=== PATIENT | female | born 1975 | race Caucasian/White ===

== ENCOUNTER 2017-11-27 08:15 | Day surgery (SDC) | payer BC ==
[~2017-11-27 08:15] MED LIST: CEFAZOLIN 2 GM/50 ML (PMX) 50 ML IVPB; DEXTROSE 5%-LR 1,000 ML IV; LACTATED RINGER'S 1,000 ML IV
[2017-11-27] MEDS: HEPARIN 5,000 UNIT/0.5 ML VIAL SC (09:14)
[2017-11-27] MEDS ORDERED: FENTAnyl 50 MCG/ML VIAL (09:45)
[2017-11-27] MEDS ORDERED: PROPOFOL 20 ML (10:14)
[2017-11-27] MEDS ORDERED: SUGAMMADEX SODIUM 200 MG/2 ML VIAL IV (10:14)
[2017-11-27] MEDS ORDERED: ROCURONIUM 50 MG INJ (10:14)
[2017-11-27] MEDS ORDERED: LIDOCAINE 100 MG SYRINGE (10:14)
[2017-11-27] MEDS ORDERED: SUCCINYLCHOLINE CHLORIDE 100 MG/5 ML SYG IV (10:14)
[2017-11-27] MEDS ORDERED: CEFAZOLIN 1 GM INJ (10:14)
[2017-11-27] MEDS: BUPIVACAINE 0.5%/EPI (SDV) 30 ML INJ (10:17)
[2017-11-27] MEDS ORDERED: ROPIVACAINE 0.5 % 30 ML VIAL (11:01)
[2017-11-27] MEDS ORDERED: MEPERIDINE 25 MG INJ (11:49)
[2017-11-27] MEDS ORDERED: HYDROmorphONE (0.2 MG/ML) 10ML SYG IV ×2 (11:53→12:00)
[2017-11-27] MEDS: HYDROmorphONE (0.2 MG/ML) 10ML SYG IV ×3 (11:55→12:06)
[2017-11-27] MEDS: MEPERIDINE 25 MG INJ IV (11:56)
[2017-11-27] MEDS ORDERED: METOCLOPRAMIDE 10 MG INJ IV (12:00)
[2017-11-27] MEDS ORDERED: DIPHENHYDRAMINE 50 MG INJ IV (12:00)
[2017-11-27] MEDS ORDERED: IBUPROFEN 400 MG TAB PO (12:00)
[2017-11-27] MEDS ORDERED: ONDANSETRON 4 MG INJ IV (12:00)
[2017-11-27] MEDS ORDERED: FENTAnyl 50 MCG/ML VIAL IV ×2 (12:00)
[2017-11-27] MEDS: HYDROCODONE/APAP (5/325) TAB PO (15:03)
== END 2017-11-27 18:00 | disposition home or self-care (01) ==
LOC: SDS 08:15
DX: Z30.2 Encounter for sterilization (principal); E66.9 Obesity, unspecified; Z68.30 Body mass index [BMI] 30.0-30.9, adult
CPT/HCPCS: 58670; 86850; 86900; 86901; 86920